=== PATIENT | male | born 1965 | race Caucasian/White ===

== ENCOUNTER → 2016-06-08 | Day surgery (SDC) | payer BC ==
[~2016-06-08] MED LIST: LISINOPRIL20 MG PO; PRILOSEC PO
--- NOTE | ~2016-06-08 | OR ---
Unit #: [id number] #: [id number] Patient: ELIZABETH LINDSEY [id number] [address] [place], [place] [address] [id number] O MR#: [id number] NAME: ELIZABETH LINDSEY. ROOM: Date of Procedure: 06/08/2016 Admission Date: 06/08/2016 Surgeon: Arun Patel M.D. : 1965 Attending Physician: Arun Patel M.D. Primary Care Physician: Sunday Mendoza M.D. OPERATIVE REPORT PREOPERATIVE DIAGNOSIS Colorectal cancer screening in an average-risk patient. PROCEDURE PERFORMED Colonoscopy up to cecum with excellent preparation and good visualization. POSTOPERATIVE DIAGNOSES The patient had small internal hemorrhoids, otherwise normal examination up to cecum. The quality of the prep was good. No polyps were seen. RECOMMENDATIONS Repeat colonoscopy in 10 years. SEDATION USED MAC. DESCRIPTION OF PROCEDURE Following detailed explanation of potential risks and complications of a colonoscopy, namely perforation, bleeding, and complications related to sedation, the patient was brought to GI lab and laid in the left lateral decubitus position. A digital rectal examination was performed, which was normal. Lubricated tip of the Olympus video colonoscope was inserted through the anus and advanced under direct vision. The scope was advanced and passed up to sigmoid into descending colon. No diverticula were noted in this area. The scope tip was then navigated all the way up to cecum with visualization of the ileocecal valve and the appendiceal orifice. Preparation was good with good visualization and photodocumentation was obtained. Successive segments of the colonic mucosa were examined upon withdrawal and appeared unremarkable. There being no polyps, mass lesions, AVMs, or diverticula. The patient did have small internal hemorrhoids seen at the anal verge on anoscopy as well as on retroflexion. The scope was then withdrawn. The patient returned to recovery area. He tolerated the procedure without any postprocedure complications. Dictated by... Juliane Anaya/arlene TD: 06/09/2016 02:11 Unit #: [id number] #: [id number] Patient: ELIZABETH LINDSEY JOB #: [id number] OPERATIVE REPORT Page 1 of 1 X Arun Patel MD PROCEDURE OPERATIVE NOTE
== END | disposition home or self-care (01) ==
LOC: COPS 11:29
DX: Z12.11 Encounter for screening for malignant neoplasm of colon (principal); K64.8 Other hemorrhoids; I10 Essential (primary) hypertension; K21.9 Gastro-esophageal reflux disease without esophagitis; F17.210 Nicotine dependence, cigarettes, uncomplicated; Z79.899 Other long term (current) drug therapy; Z90.49 Acquired absence of other specified parts of digestive tract; Z98.890 Other specified postprocedural states
CPT/HCPCS: J2250